=== PATIENT | female | born 1980 | race Caucasian/White ===

== ENCOUNTER 2024-05-22 12:35 | Emergency (ER) | payer OTHER ==
[~2024-05-22] VITALS: Ht 167.6 cm; Wt 61.2 kg
[2024-05-22 13:02] VITALS: TEMP 97.9
[2024-05-22 14:56] VITALS: BP 115/65; O2SAT 99
== END 2024-05-22 14:54 | disposition home or self-care (01) ==
LOC: ER 12:35
DX: S62.325A Displaced fracture of shaft of fourth metacarpal bone, left hand, initial encounter for closed fracture (principal); M79.642 Pain in left hand; Z88.1 Allergy status to other antibiotic agents; W18.39XA Other fall on same level, initial encounter; Y93.89 Activity, other specified; Y92.89 Other specified places as the place of occurrence of the external cause; Y99.8 Other external cause status
CPT/HCPCS: 73110; 73130-TC